=== PATIENT | male | born 1960 | race Caucasian/White ===

== ENCOUNTER 2018-09-24 15:55 | Emergency (ER) | payer OTHER ==
[2018-09-24] MEDS ORDERED: Silver Sulfadiazine 1% Crm 50 GM Tube TOP ONE (16:18)
[2018-09-24] MEDS ORDERED: Lidocaine 5% Oint 35.44 GM Tube TOP ONE (16:18)
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
== END 2018-09-24 16:51 | disposition home or self-care (01) ==
LOC: EDBD → DL.ED 15:55
DX: T23.241A Burn of second degree of multiple right fingers (nail), including thumb, initial encounter (principal)
CPT/HCPCS: 16020; 99282; A9270; 99283